=== PATIENT | female | born 1990 | race Caucasian/White ===

== ENCOUNTER 2020-06-15 22:07 | Emergency (ER) | payer OTHER ==
--- NOTE | 2020-06-15 22:17 | PDOC ---
History of Present Illness - General Chief Complaint: Pain Stated Complaint: DOG BITE ON MONDAY,C/O PAIN AND SWELLING Time Seen by Provider: 06/15/20 22:14 - History of Present Illness Initial Comments: This 29-year-old woman, otherwise healthy, presents with progression of infection in her right fingers. Patient sustained dog bites of her right second and third fingers 2 days ago when she intervened between her dog and another when they were fighting. She was seen yesterday at urgent care and started on Augmentin (875/125 twice a day which she has taken as prescribed). Tonight, she noted some increase in edema and faint erythema extending proximally on the fingers. She has some pain with flexion (and somewhat with extension) of these fingers although the pain is not severe. She has not had fever or chills. Pat ient is unclear when her last tetanus prophylaxis was given. No history of MRSA or other resistant organism infection or colonization. No history of immunocompromise or frequent skin infections. No daily medications No known allergies Non-smoker/no daily alcohol or other recreational drug use Past History - Medical History Allergies/Adverse Reactions: Allergies Allergy/AdvReac Type Severity Reaction Status Date / Time No Known Allergies Allergy Verified 06/15/20 22:08 Home Medications: Ambulatory Orders Amoxicillin/Potassium Clav [Augmentin 875-125 Tablet] 1 each PO BID 06/15/20 Clindamycin [Cleocin -] 300 mg PO TID #21 capsule 06/15/20 Levofloxacin [Levaquin] 500 mg PO DAILY #7 tablet 06/15/20 Review of Systems - Review of Systems Able to Perform ROS?: Yes Comments:: 12 point review of systems is negative except for what is noted in the history of present illness *Physical Exam - Physical Exam GENERAL: HEAD: Normal with no signs of trauma. EYES: PERRLA, EOMI, sclera anicteric, conjunctiva clear. EXTREMITIES: Right handsecond finger: 0.5 cm healing wound at base of nail, dorsal surface with surrounding edema and mild erythema; mildly tender No fluctuance or purulent discharge; moderate edema, erythema of dorsal surface proximal phalanx Mild pain on active and passive flexion/extension of finger Third finger: 0.5 cm healing wound middle phalanx, dorsal surface with surrounding mild edema/erythema with some proximal edema Mild pain on active and passive flexion/extension of finger; no purulent discharge or fluctuance noted Remainder the extremity exam is normal NEUROLOGICAL: Cranial nerves II through XII grossly intact. Normal speech. No focal neurological deficits. SKIN: Warm, Dry, normal turgor, no rashes or lesions noted except that noted above Medical Decision Making - Medical Decision Making As noted above, this 29-year-old woman with history of dog bites to her second and third fingers of her right hand 2 days ago and evaluation yesterday at urgent care, presents with progression of her inflammation/infection while being treated with Augmentin 875/125 twice a day. Patient states that she has been taking the antibiotic as prescribed. Comparison of exam today with the patient's description and photographs taken of the wound yesterday, confirms that she has had some progression of the soft tissue infection in the fingers. She does not have significant lymphangitic streaking proximal to the MCP joints and pain on extension/flexion is mild. Vancomycin 1 g IV started; approximately 1/2-hour after start of the infusion, patient had flushing of her face and hands. Infusion was running at proper slow rate; patient states that she has sensitive skin and frequently has reactions to new medications. No shortness of breath or upper airway edema noted. Patient had some pruritus of the hands. Infusion was stopped (approximately 500 mg IV had been administered). Within approximately 15 to 20 minutes, the patient had no further facial erythema, hand erythema or pruritus. Since patient has had progression on Augmentin, will change p.o. antibiotic regimen: Clindamycin 300 mg 3 times a day will be started along with Levaquin 500 mg daily (for Pasteurella coverage) for 1 week First dose of clindamycin 300 mg given here in the emergency room. Patient will be discharged with instructions to return to the emergency room if she has any further increase in edema, erythema in the fingers or extension of red streaking into her hand/arm. Also, she develops increasing pain or fever occurs, she should return to the ER. Otherwise, she should follow-up with her general doctor within the next 3 to 4 days Discharge - Discharge Information Problems reviewed: Yes Clinical Impression/Diagnosis: Cellulitis of finger of right hand Condition: Stable Disposition: HOME - Additional Discharge Information Prescriptions: Clindamycin [Cleocin -] 300 mg PO TID #21 capsule Levofloxacin [Levaquin] 500 mg PO DAILY #7 tablet - Follow up/Referral - Patient Discharge Instructions Patient Printed Discharge Instructions: ANTOLIN for Cellulitis -- Adult Additional Instructions: Stop amoxicillin/clavulanic acid Begin clindamycin 300 mg 3 times a day; Levaquin 500 mg once a day for 1 week Can continue to elevate right hand is much as possible Return to ER if you have any worsening swelling/redness/pain or you develop fever Follow-up with your general medical doctor within the next 3 to 4 days - Post Discharge Activity
[2020-06-15 22:23] VITALS: BP 127/83; PULSE 86; TEMP 99.2; BMI 23.4
[2020-06-15] MEDS ORDERED: VANCOMYCIN 1 GM in D5W (PRE-DOCKED) 1,000 MG/250 ML IVPB ONE (22:26)
[2020-06-15] MEDS ORDERED: DIPHTH,PERTUSS(ACELL),TET 0.5 ML DISP.SYRIN IM ONE ×2 (22:27→22:34)
[2020-06-15] MEDS ORDERED: VANCOMYCIN 1,000 MG VIAL (RESTRICTED TO ID ONLY) ONE (22:34)
[2020-06-15] MEDS ORDERED: CLINDAMYCIN HCL 300 MG CAPSULE PO ONE (23:56)
[2020-06-16] MEDS ORDERED: CLINDAMYCIN HCL 150 MG CAPSULE (FP) ONE (00:01)
== END 2020-06-16 00:08 | disposition home or self-care (01) ==
LOC: FER 22:07
PROC: 3E02329 Introduction of Other Anti-infective into Muscle, Percutaneous Approach (ICD-10-PCS; principal; 2020-06-15)
PROC: 3E0234Z Introduction of Serum, Toxoid and Vaccine into Muscle, Percutaneous Approach (ICD-10-PCS; 2020-06-15)
DX: L03.311 Cellulitis of abdominal wall (principal)
CPT/HCPCS: 90471; 90715; 96372; 99284-25